=== PATIENT | female | born 1955 | race Caucasian/White ===

== ENCOUNTER 2018-11-19 21:43 | Emergency (ER) | payer SELFPAY ==
[~2018-11-19] VITALS: Ht 162.6 cm; Wt 57.2 kg
[2018-11-19] MEDS ORDERED: diphenhydrAMINE 50 MG/ML INJ (BENADRYL) IVP ONE (22:15)
[2018-11-19] MEDS ORDERED: methylPREDNISolone 125 MG (Solu-MEDROL) VIAL IVP ONE (22:15)
--- NOTE | 2018-11-19 22:51 | ED Integumentary General ---
General Chief Complaint: Allergic Reaction Stated Complaint: ALLERGIC REACTION Source: patient, spouse History of Present Illness Date Seen by Provider: Nov 19, 2018 Time Seen by Provider: 21:50 Initial Comments 63-year-old female presenting with complaints of generalized itching and hives. She was concerned that she may have eaten something that was connected drinking well earlier this evening. Around 8 PM she started having some itching and hives that have worsened. She had no wheezing or shortness of breath. She does not have any difficulty swallowing. She was becoming anxious that her symptoms may worsen so she came to the emergency department. She has had similar symptoms with peanuts and other allergy reactions. Allergies and Home Medications Allergies Coded Allergies: peanut (Verified Allergy, Unknown, 11/19/18) Home Medications Prednisone 20 Mg Tab, 40 MG PO DAILY Prescribed by: LASHELL LEWIS on 11/19/18 3689 Patient Home Medication List Home Medication List Reviewed: Yes Review of Systems Review of Systems Constitutional: No chills, No fever EENTM: No throat pain, No throat swelling Respiratory: No cough, No dyspnea on exertion, No short of breath Cardiovascular: No chest pain Gastrointestinal: abdominal pain (diffuse cramping) Genitourinary: no symptoms reported Musculoskeletal: no symptoms reported Skin: no symptoms reported Psychiatric/Neurological: No Symptoms Reported Past Zbivksa-Aoennj-Gtqczc Hx Past Med/Social Hx: Reviewed Nursing Past Med/Soc Hx Patient Social History Alcohol Use: Denies Use Recreational Drug Use: No 2nd Hand Smoke Exposure: No Recent Foreign Travel: No Contact w/Someone Who Travel: No Recent Hopitalizations: No Seasonal Allergies Seasonal Allergies: Yes Past Medical History Surgeries: Yes Thyroidectomy Respiratory: Yes Asthma Cardiac: No Neurological: No Genitourinary: No Gastrointestinal: No Musculoskeletal: No Endocrine: No HEENT: No Cancer: No Psychosocial: No Integumentary: No Blood Disorders: No Physical Exam Vital Signs Vital Signs - First Documented 11/19/18 21:55 Temp 97.9 Pulse 68 Resp 18 B/P (MAP) 155/68 (97) Pulse Ox 98 Capillary Refill : General Appearance: WD/WN, no apparent distress HEENT: normal ENT inspection, pharynx normal Neck: non-tender, full range of motion, supple, normal inspection Cardiovascular: normal peripheral pulses, regular rate, rhythm Respiratory: chest non-tender, lungs clear, normal breath sounds, no respiratory distress, no accessory muscle use; No rhonchi, No stridor, No wheezing Gastrointestinal: normal bowel sounds, soft, no pulsatile mass Extremities: normal range of motion, non-tender Neurologic/Psychiatric: alert, normal mood/affect, oriented x 3 Skin: warm/dry, rash (urticarial rash on her trunk and extremities) Progress/Results/Core Measures Results/Orders My Orders Orders - LASHELL LEWIS MD Iv/Invasive Line Insertion .IV start (11/19/18 22:03) Diphenhydramine Injection (Benadryl Inje (11/19/18 22:15) Methylprednisolone Sod Succ (Solu-Medrol (11/19/18 22:15) Medications Given in ED Current Medications Medications Dose Ordered Sig/Jessica Route Start Time Stop Time Status Last Admin Dose Admin Diphenhydramine HCl 50 mg ONCE ONCE IVP 11/19/18 22:15 11/19/18 22:16 DC 11/19/18 22:08 50 MG Methylprednisolone Sodium Succinate 125 mg ONCE ONCE IVP 11/19/18 22:15 11/19/18 22:16 DC 11/19/18 22:08 125 MG Vital Signs/I&O 11/19/18 11/19/18 21:55 23:22 Temp 97.9 Pulse 68 72 Resp 18 16 B/P (MAP) 155/68 (97) 129/60 (83) Pulse Ox 98 96 Progress Progress Note #1: Progress Note We will give Solu-Medrol and Benadryl IV for her symptoms. Provided she is improving we'll plan on discharge with continued oral treatment Progress Note #2: Progress Note On recheck approximately 30-40 minutes after medication she was improved and will discharge to home with prescription for 3 more days of prednisone. We will have her continue [id number] antihistamines. Departure Impression Primary Impression: Allergic reaction Qualified Codes: T78.40XA - Allergy, unspecified, initial encounter Additional Impression: H/O peanut allergy Disposition: HOME, SELF-CARE Condition: Improved Departure-Patient Inst. Decision time for Depature: 23:07 Patient Instructions: Allergy to Peanuts , Hives (DC) Add. Discharge Instructions: Check back with your regular provider for continued concerns. use Benadryl (Diphenhydramine) 25-50 mg every 6 hours as needed for rash/itching. If you want something less sedating you could try Zyrtec (Cetirizine), Urmila (Fexofenadine) or Claritin (Loratidine). Continue the Steroids by mouth with Prednisone daily for 3 more days. All discharge instructions reviewed with patient and/or family. Voiced underst anding. Scripts Prednisone (Prednisone) 20 Mg Tab 40 MG PO DAILY for 3 Days, #6 TAB 0 Refills Prov: LASHELL LEWIS MD 11/19/18 LASHELL LEWIS MD Nov 19, 2018 22:51
[2018-11-19] MEDS ORDERED: PRD20T PO (23:11)
[2018-11-19 23:22] VITALS: BP 129/60
== END 2018-11-19 23:25 | disposition home or self-care (01) ==
LOC: ER FS 21:46
DX: T78.40XA Allergy, unspecified, initial encounter (principal); J45.909 Unspecified asthma, uncomplicated; Z79.52 Long term (current) use of systemic steroids; Z90.89 Acquired absence of other organs; Z91.010 Allergy to peanuts
CPT/HCPCS: 96374; 96375

== ENCOUNTER 2019-05-13 12:38 | Emergency (ER) | payer MEDICARE ==
[~2019-05-13] VITALS: Ht 162.5 cm; Wt 55.4 kg
[~2019-05-13 12:38] MED LIST: PRD20T PO
--- NOTE | 2019-05-13 14:03 | ED General ---
General Chief Complaint: Abdominal/GI Problems Stated Complaint: PAIN - HERNIA SURG EARLIER THIS W[facility] Nursing Triage Note: Patient presents to the ED with c/o rectal and lower abdominal pain. States she had a hemorrohidectomy on Wednesday and hasn't been able to have a good bowel movement since. She does report that she has had a small bowel movement today but doesn't feel like it is enough. She states that she was instructed to come to the ED if her pain became unbearable; she feels like she is going to "pass out" when trying to have a bowel movement due to the severity of the pain. Nursing Sepsis Screen: No Definite Risk History of Present Illness Date Seen by Provider: May 13, 2019 Time Seen by Provider: 14:03 Initial Comments 64-year-old female presenting with complaints of urinary pain and rectal pain. She had a hemorrhoidectomy on Wednesday with Dr. Barreto out of [facility]. She states that she is taking a stool softener since then but has not had a bowel movement. She has severe pain when she tries to pass any stool and has a very small amount of stool come out but almost passed out due to the pain. She also is having urine just spray when she tries to urinate. She has dizziness and lightheadedness when she tries to stand. She feels nauseated and has not been eating or drinking much today. Due to the pain and running out of her hydrocodone she feels pain is out of control and not being controlled with just taking acetaminophen and ibuprofen. She had called the on-call doctor for Dr. Barreto and was told to come to the emergency department if she continued to have problems. Allergies and Home Medications Allergies Coded Allergies: peanut (Verified Allergy, Unknown, 11/19/18) Home Medications Ondansetron 4 Mg Tab.rapdis, 4 MG PO Q6H PRN for NAUSEA/VOMITING Prescribed by: LASHELL ALEXANDRERT on 05/13/19 1724 Oxycodone HCl/Acetaminophen 1 Each Tablet, 1 TAB PO Q4H PRN for PAIN-SEVERE (8- 10) Prescribed by: LASHELL ALEXANDRERT on 05/13/19 1724 Prednisone 20 Mg Tab, 40 MG PO DAILY Prescribed by: LASHELL ALEXANDRERT on 11/19/18 2311 Patient Home Medication List Home Medication List Reviewed: Yes Review of Systems Review of Systems Constitutional: No chills; dizziness (with standing); No fever; malaise, weakness (generalized) EENTM: no symptoms reported Respiratory: no symptoms reported Cardiovascular: no symptoms reported Gastrointestinal: abdominal pain (suprapubic), constipation, nausea; No vomitin g; other (rectal pain especially when she tries to have a bowel movement or with any bearing down) Genitourinary: dysuria Musculoskeletal: no symptoms reported Skin: no symptoms reported Psychiatric/Neurological: Anxiety Past Lqllawt-Bedfja-Chdovx Hx Past Med/Social Hx: Reviewed Nursing Past Med/Soc Hx Patient Social History Alcohol Use: Denies Use Recreational Drug Use: No Smoking Status: Never a Smoker 2nd Hand Smoke Exposure: No Recent Foreign Travel: No Contact w/Someone Who Travel: No Recent Infectious Disease Expo: No Recent Hopitalizations: No Physical Abuse: No Sexual Abuse: No Mistreated: No Fear: No Immunizations Up To Date Tetanus Booster (TDap): Unknown Date of Pneumonia Vaccine: Mar 21, 2019 Date of Influenza Vaccine: Mar 21, 2019 Seasonal Allergies Seasonal Allergies: Yes Past Medical History Surgeries: Yes Bowel Surgery, Breast, Cystectomy, Orthopedic, Thyroidectomy, Tonsillectomy Respiratory: Yes Asthma Cardiac: No Neurological: No Genitourinary: No Gastrointestinal: Yes (Hemorrhoidectomy) Hemorrhoids Musculoskeletal: Yes Arthritis Endocrine: Yes Hypothyroidsim HEENT: No Cancer: No Psychosocial: No Integumentary: No Blood Disorders: No Physical Exam Vital Signs Vital Signs - First Documented 05/13/19 12:45 Temp 36.0 Pulse 83 Resp 24 B/P (MAP) 131/75 (93) Pulse Ox 96 O2 Delivery Room Air Capillary Refill : Less Than 3 Seconds Height, Weight, BMI Height: 5'4.00" Weight: 126lbs. oz. 57.447416hg; 20.00 BMI Method:Stated General Appearance: Anxious, Mild Distress HEENT: PERRL/EOMI; No Moist Mucous Membranes (slightly dry mucous membranes) Neck: Full Range of Motion, Supple Respiratory: Chest Non Tender, Lungs Clear, Normal Breath Sounds Cardiovascular: Regular Rate, Rhythm, Normal Peripheral Pulses Gastrointestinal: Normal Bowel Sounds, No Pulsatile Mass, Soft; No Guarding; Tenderness (mild tenderness over the suprapubic area) Rectal: Tenderness (redness and irritation to the rectal area. There's swelling and a small amount of blood noted. On digital rectal exam a large amount of firm stool is felt within the rectal vault.) Extremity: Normal Capillary Refill, No Pedal Edema Neurologic/Psychiatric: Alert, Oriented x3 Skin: Normal Color, Warm/Dry Progress/Results/Core Measures Suspected Sepsis Recent Fever Within 48 Hours: No Infection Criteria Present: None New/Unexplained Altered Menta: No Sepsis Screen: No Definite Risk SIRS Temperature: Pulse: 83 Respiratory Rate: 24 Laboratory Tests 05/13/19 14:20: White Blood Count 12.4H Blood Pressure 131 /75 Mean: 93 Laboratory Tests 05/13/19 14:20: Creatinine 0.81, Platelet Count 275, Total Bilirubin 0.2 Results/Orders Lab Results Laboratory Tests Test 05/13/19 14:20 05/13/19 15:25 Range/Units White Blood Count 12.4 H 4.3-11.0 10^3/uL Red Blood Count 4.79 4.35-5.85 10^6/uL Hemoglobin 14.4 11.5-16.0 G/DL Hematocrit 42 35-52 % Mean Corpuscular Volume 88 80-99 FL Mean Corpuscular Hemoglobin 30 25-34 PG Mean Corpuscular Hemoglobin Concent 34 32-36 G/DL Red Cell Distribution Width 12.5 10.0-14.5 % Platelet Count 275 130-400 10^3/uL Mean Platelet Volume 9.9 7.4-10.4 FL Neutrophils (%) (Auto) 79 H 42-75 % Lymphocytes (%) (Auto) 13 12-44 % Monocytes (%) (Auto) 7 0-12 % Eosinophils (%) (Auto) 1 0-10 % Basophils (%) (Auto) 0 0-10 % Neutrophils # (Auto) 9.8 H 1.8-7.8 X 10^3 Lymphocytes # (Auto) 1.6 1.0-4.0 X 10^3 Monocytes # (Auto) 0.8 0.0-1.0 X 10^3 Eosinophils # (Auto) 0.1 0.0-0.3 10^3/uL Basophils # (Auto) 0.0 0.0-0.1 10^3/uL Sodium Level 141 135-145 MMOL/L Potassium Level 4.2 3.6-5.0 MMOL/L Chloride Level 102 98-107 MMOL/L Carbon Dioxide Level 25 21-32 MMOL/L Anion Gap 14 5-14 MMOL/L Blood Urea Nitrogen 13 7-18 MG/DL Creatinine 0.81 0.60-1.30 MG/DL Estimat Glomerular Filtration Rate > 60 BUN/Creatinine Ratio 16 Glucose Level 123 H 70-105 MG/DL Calcium Level 9.7 8.5-10.1 MG/DL Corrected Calcium 9.6 8.5-10.1 MG/DL Total Bilirubin 0.2 0.1-1.0 MG/DL Aspartate Amino Transf (AST/SGOT) 34 5-34 U/L Alanine Aminotransferase (ALT/SGPT) 33 0-55 U/L Alkaline Phosphatase 69 40-136 U/L Total Protein 6.9 6.4-8.2 GM/DL Albumin 4.1 3.2-4.5 GM/DL Lipase 23 8-78 U/L Urine Color YELLOW Urine Clarity CLEAR Urine pH 7.5 5-9 Urine Specific [place] 1.010 L 1.016-1.022 Urine Protein NEGATIVE NEGATIVE Urine Glucose (UA) NEGATIVE NEGATIVE Urine Ketones NEGATIVE NEGATIVE Urine Nitrite NEGATIVE NEGATIVE Urine Bilirubin NEGATIVE NEGATIVE Urine Urobilinogen 0.2 < = 1.0 MG/DL Urine Leukocyte Esterase NEGATIVE NEGATIVE Urine RBC (Auto) NEGATIVE NEGATIVE Urine RBC NONE /HPF Urine WBC NONE /HPF Urine Squamous Epithelial Cells NONE /HPF Urine Crystals PRESENT H /LPF Urine Amorphous Sediment FEW MARY PHOSPHATE H /LPF Urine Bacteria NEGATIVE /HPF Urine Casts NONE /LPF Urine Mucus NONE /LPF Urine Culture Indicated NO My Orders Orders - LASHELL LEWIS MD Comprehensive Metabolic Panel (05/13/19 14:17) Lipase (05/13/19 14:17) Ua Culture If Indicated (05/13/19 14:17) Ed Iv/Invasive Line Start (05/13/19 14:17) Cbc With Automated Diff (05/13/19 14:17) Ct Abdomen/Pelvis W (05/13/19 14:17) Ns Iv 1000 Ml (Sodium Chloride 0.9%) (05/13/19 14:30) Ondansetron Injection (Zofran Injectio (05/13/19 14:17) Fentanyl Injection (Sublimaze Injection (05/13/19 14:17) Iohexol Injection (Omnipaque 350 Mg/Ml 1 (05/13/19 14:30) Received Contrast (Hold Metformin- Contr (05/13/19 14:30) Sodium Chloride Flush (Catheter Flush Sy (05/13/19 14:30) Ns (Ivpb) (Sodium Chloride 0.9% Ivpb Bag (05/13/19 14:30) Fentanyl Injection (Sublimaze Injection (05/13/19 16:14) Oxycodone/Apap 5/325mg Tablet (Percocet (05/13/19 16:14) Lidocaine 2% Jelly 5 Ml (Xylocaine Jelly (05/13/19 16:14) Medications Given in ED Vital Signs/I&O 05/14/19 00:00 Intake Total 1000 ml Balance 1000 ml Capillary Refill : Less Than 3 Seconds Blood Pressure Mean: 93 POS Progress Note #1: Progress Note Obtain labs and perform a CT scan of the abdomen and pelvis to evaluate the extent of stool present and look for any fluid collections since the patient was complaining of such severe pain around her rectum. This is still likely secondary to her fecal impaction from patient not adequately keeping her stools soft and passing any stool through her rectum since it's tender and painful from the recent hemorrhoidectomy. Progress Note #2: Progress Note Patient was feeling a little bit better after treatment in the ED. Her labs appear stable with a mild elevation of her white blood cell count likely secondary to stress and recent surgery. There is no sign of infection on her urinalysis. Her CT scan showed a significant amount of stool present as well as a possible stool down in her rectum. There was no sign of an abscess or fluid collection. Discussed with Dr. Barreto the surgeon that performed her hemorrhoidectomy from [facility]. He advised refilling a prescription for some pain medicine to help get her through the constipation stressing the importance of drinking fluids and continue laxative in addition to the Colace. He advised using some topical lidocaine jelly to help with pain in her hemorrhoidectomy area as well as taking milk of magnesia 20 MLS every 2 hours until results. Make sure to follow a liquid diet until she is passing stools. Will give an additional dose of fentanyl here for pain and start her on the Percocet. Prescribe some Percocet and Zofran for home to help with nausea and pain until she can be passing stools. Counseled on sitz baths and that she may even need to soak in a warm tub and try to pass stool while in the tub to help the rectum relax. Diagnostic Imaging Diagonstic Imaging: CT Plain Films/CT/US/NM/MRI: abdomen, pelvis Comments NAME: DORA GARCIA REC#: [id number] PT STATUS: REG ER : 1955 PHYSICIAN: LASHELL LEWIS MD ADMIT DATE: 05/13/19/ER FS Draft POSDate of Exam:05/13/19 CT ABDOMEN/PELVIS W PROCEDURE: CT abdomen and pelvis with contrast. TECHNIQUE: Multiple contiguous axial images were obtained through the abdomen and pelvis after administration of intravenous contrast. Auto Exposure Controls were utilized during the CT exam to meet ALARA standards for radiation dose reduction. INDICATION: Lower abdominal pain, hemorrhoidectomy 4 days ago. COMPARISON: None. DISCUSSION: The lung bases are well-aerated. Normal heart size. No pleural or pericardial fluid. Fatty infiltration of the liver is noted. Probable cyst within the right hepatic dome measuring 8 mm. The gallbladder, pancreas, stomach, spleen, and adrenal glands are unremarkable. No renal stone on the right. There is a 5 mm stone on the left with no hydronephrosis. There is moderate constipation noted diffusely. Significant stool is present within the rectum. The uterus appears to be surgically absent. Urinary bladder is unremarkable. The appendix is surgically absent. No obstruction, pneumatosis, pneumoperitoneum. No ascites or pathologically enlarged lymph nodes are identified. No acute osseous abnormality. Chronic appearing T11 compression fracture. IMPRESSION: 1. Significant constipation with markedly increased stool within the rectum. Dictated on workstation # [id number] Dict: 05/13/19 1526 Trans: 05/13/19 1530 [facility] [id number] Interpreted by: GLORIA ESTRADA MD Electronically signed by: Departure Impression Primary Impression: Rectal pain Additional Impressions: Constipation Qualified Codes: K59.00 - Constipation, unspecified S/P hemorrhoidectomy Disposition: 01 HOME, SELF-CARE Condition: Stable Departure-Patient Inst. Decision time for Depature: 17:17 Referrals: XOCHILT PLASCENCIA MD (PCP/Family) Primary Care Physician Patient Instructions: Constipation, Adult (DC), Hemorrhoidectomy (DC) Add. Discharge Instructions: Use the topical lidocaine jelly to help numb your rectum and you may apply this every 1-2 hours as needed to help with the pain. Use milk of magnesia 20 mL or 4 teaspoons every 2 hours until you are getting results of moving your bowels. This will cause cramping and some abdominal bloating but it will help make your bowels move and help get the constipation to resolve. Make sure that you're following a liquid diet. Follow-up with Dr. Barreto for f urther concerns. You may always call him through the answering service if you have further questions. All discharge instructions reviewed with patient and/or family. Voiced understanding. Scripts Ondansetron (Ondansetron Odt) 4 Mg Tab.rapdis 4 MG PO Q6H PRN for NAUSEA/VOMITING for 5 Days, #20 TAB 0 Refills Prov: LASHELL LEWIS MD 05/13/19 Oxycodone HCl/Acetaminophen (Percocet 5-325 mg Tablet) 1 Each Tablet 1 TAB PO Q4H PRN for PAIN-SEVERE (8-10) MDD 6 TABS for 5 Days, #30 TAB 0 Refills Prov: LASHELL LEWIS MD 05/13/19 LASHELL LEWIS MD May 13, 2019 14:03 POS
[2019-05-13] MEDS ORDERED: fentaNYL INJECTION 100 MCG/2 ML AMP IVP STA ×2 (14:17→16:14)
[2019-05-13] MEDS ORDERED: ONDANSETRON 4 MG/2 ML (SDV) Z0FRAN IVP STA (14:17)
[2019-05-13] MEDS ORDERED: CATHETER FLUSH 10 ML SYR IV PRN (14:30)
[2019-05-13] MEDS ORDERED: IOHEXOL 350 MG/ML 100 ML (OMNIPAQUE 350) VIAL IV ONE (14:30)
[2019-05-13] MEDS ORDERED: NS IV 1000 ML 1,000 ML IV SCH (14:30)
[2019-05-13] MEDS ORDERED: HOLD METFORMIN - RECEIVED CONTRAST 20 ML VIAL IV SCH (14:30)
[2019-05-13] MEDS ORDERED: NS 100 ML (IVPB) BAG IV ONE (14:30)
[2019-05-13 14:32] LABS: BASOPHILS % (AUTO) 0 % (0-10); EOSINOPHILS % (AUTO) 1 % (0-10); HEMATOCRIT 42 % (35-52); HEMOGLOBIN 14.4 G/DL (11.5-16.0); LYMPHOCYTES % (AUTO) 13 % (12-44); MEAN CORPUSCULAR HEMOGLOBIN 30 PG (25-34); MEAN CORPUSCULAR HGB CONC 34 G/DL (32-36); MEAN CORPUSCULAR VOLUME 88 FL (80-99); MEAN PLATELET VOLUME 9.9 FL (7.4-10.4); MONOCYTES % (AUTO) 7 % (0-12); NEUTROPHILS # (AUTO) 9.8 X 10^3 (1.8-7.8); NEUTROPHILS % (AUTO) 79 % (42-75); PLATELET COUNT 275 10^3/uL (130-400); RED CELL DISTRIBUTION WIDTH 12.5 % (10.0-14.5); WHITE BLOOD COUNT 12.4 10^3/uL (4.3-11.0)
[2019-05-13 14:33] LABS: EOSINOPHILS # (AUTO) 0.1 10^3/uL (0.0-0.3); LYMPHOCYTES # (AUTO) 1.6 X 10^3 (1.0-4.0); MONOCYTES # (AUTO) 0.8 X 10^3 (0.0-1.0)
[2019-05-13 14:53] LABS: ALANINE AMINOTRANSFERASE 33 U/L (0-55); ALBUMIN 4.1 GM/DL (3.2-4.5); ALKALINE PHOSPHATASE 69 U/L (40-136); BILIRUBIN,TOTAL 0.2 MG/DL (0.1-1.0); BUN/CREATININE RATIO 16; CALCIUM 9.7 MG/DL (8.5-10.1); CARBON DIOXIDE 25 MMOL/L (21-32); CHLORIDE 102 MMOL/L (98-107); CREATININE SERUM 0.81 MG/DL (0.60-1.30); GFR ESTIMATED > 60; GLUCOSE 123 MG/DL (70-105); LIPASE 23 U/L (8-78); POTASSIUM 4.2 MMOL/L (3.6-5.0); SODIUM 141 MMOL/L (135-145); TOTAL PROTEIN 6.9 GM/DL (6.4-8.2)
--- NOTE | 2019-05-13 15:30 | Diagnostic Imaging Report ---
PROCEDURE: CT abdomen and pelvis with contrast. TECHNIQUE: Multiple contiguous axial images were obtained through the abdomen and pelvis after administration of intravenous contrast. Auto Exposure Controls were utilized during the CT exam to meet ALARA standards for radiation dose reduction. INDICATION: Lower abdominal pain, hemorrhoidectomy 4 days ago. COMPARISON: None. DISCUSSION: The lung bases are well-aerated. Normal heart size. No pleural or pericardial fluid. Fatty infiltration of the liver is noted. Probable cyst within the right hepatic dome measuring 8 mm. The gallbladder, pancreas, stomach, spleen, and adrenal glands are unremarkable. No renal stone on the right. There is a 5 mm stone on the left with no hydronephrosis. There is moderate constipation noted diffusely. Significant stool is present within the rectum. The uterus appears to be surgically absent. Urinary bladder is unremarkable. The appendix is surgically absent. No obstruction, pneumatosis, pneumoperitoneum. No ascites or pathologically enlarged lymph nodes are identified. No acute osseous abnormality. Chronic appearing T11 compression fracture. IMPRESSION: 1. Significant constipation with markedly increased stool within the rectum. Dictated by: Dictated on workstation # [id number]
[2019-05-13 15:47] LABS: BACTERIA,URINE NEGATIVE /HPF; BILIRUBIN,URINE NEGATIVE (NEGATIVE); CLARITY,URINE CLEAR; COLOR,URINE YELLOW; GLUCOSE, URINE (UA) NEGATIVE (NEGATIVE); KETONES,URINE NEGATIVE (NEGATIVE); LEUKOCYTE ESTERASE ,URINE NEGATIVE (NEGATIVE); NITRITE,URINE NEGATIVE (NEGATIVE); PH,URINE 7.5 (5-9); PROTEIN,URINE NEGATIVE (NEGATIVE)
[2019-05-13 15:48] LABS: AMORPHOUS SEDIMENT,UR FEW AMOR PHOSPHATE /LPF
[2019-05-13] MEDS ORDERED: oxyCODONE/APAP 5/325MG (PERCOCET 5) TABLET PO STA (16:14)
[2019-05-13] MEDS ORDERED: LIDOCAINE JELLY 2% (XYLOCAINE) 5 ML TUBE TOP STA (16:14)
[2019-05-13] MEDS ORDERED: ONDA4TAB11 PO (17:24)
[2019-05-13] MEDS ORDERED: OXYC1TAB87 PO (17:24)
[2019-05-13 17:33] VITALS: BP 131/75
== END 2019-05-13 17:33 | disposition home or self-care (01) ==
LOC: EDUNIT# 12:38 → ER FS 12:40
DX: K59.00 Constipation, unspecified (principal); J45.909 Unspecified asthma, uncomplicated; E03.9 Hypothyroidism, unspecified; Z98.890 Other specified postprocedural states; Z79.52 Long term (current) use of systemic steroids; Z90.89 Acquired absence of other organs
CPT/HCPCS: 36415; 74177; 80053; 81000; 83690; 85025

== ENCOUNTER 2020-01-22 04:00 | Emergency (ER) | payer MEDICARE ==
[~2020-01-22 04:00] MED LIST changes: +ONDA4TAB11 PO; +OXYC1TAB87 PO
--- OUTSIDE RECORDS SUMMARY | 2020-01-22 04:06 | XMS REPORT | Continuity of Care Document ---
Author Organization Unknown Address Unknown Phone Unavailable Allergies Active Description Code Type Severity Reaction Onset Reported/Identified Relationship to Patient Clinical Status Yes peanut [id number] Drug Allergy Unknown N/A 11/19/2018 Medications There is no data. 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 11/19/2018 LASHELL LEWIS MD Ot Z90.8 9 ACQUIRED ABSENCE OF OTHER ORGANS 11/19/2018 LASHELL LEWIS MD Ot Z91.0 10 ALLERGY TO PEANUTS 05/13/2019 LASHELL LEWIS MD, Ot E03.9 HYPOTHYROIDISM, UNSPECIFIED 05/13/2019 LASHELL LEWIS MD, Ot J45.9 09 UNSPECIFIED ASTHMA, UNCOMPLICATED 05/13/2019 LASHELL LEWIS MD Ot K59.0 0 CONSTIPATION, UNSPECIFIED 05/13/2019 LASHELL LEWIS MD Ot K62.8 9 OTHER SPECIFIED DISEASES OF ANUS AND REC 05/13/2019 LASHELL LEWIS MD, Ot Z79.5 2 PRISON (CURRENT) USE OF SYSTEMIC STER 05/13/2019 LASHELL LEWIS MD Ot Z90.8 9 ACQUIRED ABSENCE OF OTHER ORGANS 05/13/2019 LASHELL LEWIS MD Ot Z98.8 90 OTHER SPECIFIED POSTPROCEDURAL STATES 05/16/2019 LASHELL LEWIS MD Ot E03.9 HYPOTHYROIDISM, UNSPECIFIED 05/16/2019 LASHELL LEWIS MD Ot J45.9 09 UNSPECIFIED ASTHMA, UNCOMPLICATED 05/16/2019 LASHELL LEWIS MD Ot K59.0 0 CONSTIPATION, UNSPECIFIED 05/16/2019 LASHELL LEWIS MD Ot K62.8 9 OTHER SPECIFIED DISEASES OF ANUS AND REC 05/16/2019 LASHELL LEWIS MD Ot 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 05/16/2019 LASHELL LEWIS MD Ot Z90.8 9 ACQUIRED ABSENCE OF OTHER ORGANS 05/16/2019 LASHELL LEWIS MD Ot Z98.8 90 OTHER SPECIFIED POSTPROCEDURAL STATES 05/22/2019 LASHELL LEWIS MD Ot E03.9 HYPOTHYROIDISM, UNSPECIFIED 05/22/2019 LASHELL LEWIS MD Ot J45.9 09 UNSPECIFIED ASTHMA, UNCOMPLICATED 05/22/2019 LASHELL LEWIS MD, Ot K59.0 0 CONSTIPATION, UNSPECIFIED 05/22/2019 LASHELL LEWIS MD Ot K62.8 9 OTHER SPECIFIED DISEASES OF ANUS AND REC 05/22/2019 LASHELL LEWIS MD Ot Z79.5 2 PRISON (CURRENT) USE OF SYSTEMIC STER 05/22/2019 LASHELL LEWIS MD Ot Z90.8 9 ACQUIRED ABSENCE OF OTHER ORGANS 05/22/2019 LASHELL LEWIS MD Ot Z98.8 90 OTHER SPECIFIED POSTPROCEDURAL STATES Procedures There is no data. Results Test Result Range TSH w/ FREE T4 - 02/06/19 08:23 TSH 2.07 mIU/L 0.40-4.50 T4, FREE 1.1 ng/dL 0.8-1.8 LIPID PANEL - 02/06/19 08:23 CHOLESTEROL, TOTAL 255 mg/dL <200 HDL CHOLESTEROL 52 mg/dL >50 TRIGLYCERIDES 287 mg/dL <150 LDL-CHOLESTEROL 156 mg/dL (calc) NRG CHOL/HDLC RATIO 4.9 (calc) <5.0 NON HDL CHOLESTEROL 203 mg/dL (calc) <13 0 CMP - 02/06/19 08:23 GLUCOSE 94 mg/dL 65-99 UREA NITROGEN (BUN) 23 mg/dL 7-25 CREATININE 1.03 mg/dL 0.50-0.99 eGFR NON-AFR. BELIZEAN 57 mL/min/1.73m2 > OR = 60 eGFR 66 mL/min/1.73m2 > OR = 60 BUN/CREATININE RATIO 22 (calc) 6-22 SODIUM 141 mmol/L 135-146 POTASSIUM 4.6 mmol/L 3.5-5.3 CHLORIDE 105 mmol/L 98-110 CARBON DIOXIDE 29 mmol/L 20-32 CALCIUM 9.9 mg/dL 8.6-10.4 PROTEIN, TOTAL 6.3 g/dL 6.1-8.1 ALBUMIN 4.2 g/dL 3.6-5.1 GLOBULIN 2.1 g/dL (calc) 1.9-3.7 ALBUMIN/GLOBULIN RATIO 2.0 (calc) 1.0-2. 5 BILIRUBIN, TOTAL 0.5 mg/dL 0.2-1.2 ALKALINE PHOSPHATASE 55 U/L 33-130 AST 20 U/L 10-35 ALT 19 U/L 6-29 Complete blood count (CBC) with automate d white blood cell (WBC) differential - 05/13/19 14:20 Blood leukocytes automated count (number/volume) 12.4 10*3/uL 4.3-11.0 Blood erythrocytes automated count (number/volume) 4.79 10*6/uL 4.35-5.85 Venous blood hemoglobin measurement (mass/volume) 14.4 g/dL 11.5-16.0 Blood hematocrit (volume fraction) 42 % 35-52 Automated erythrocyte mean corpuscular volume 88 [ foz_us] 80-99 Automated erythrocyte mean corpuscular h emoglobin (mass per erythrocyte) 30 pg 25-34 Automated erythrocyte mean corpuscular h emoglobin concentration measurement (mass/volume) 34 g/dL 32-36 Automated erythrocyte distribution width ratio 12. 5 % 10.0- 14.5 Automated blood platelet count (count/volume) 275 10*3/uL 130-400 Automated blood platelet mean volume measurement 9.9 [foz_us] 7.4-10.4 Automated blood neutrophils/100 leukocytes 79 % 42-75 Automated blood lymphocytes/100 leukocytes 13 % 12-44 Blood monocytes/100 leukocytes 7 % 0-12 Automated blood eosinophils/100 leukocytes 1 % 0-10 Automated blood basophils/100 leukocytes 0 % 0-10 Blood neutrophils automated count (number/volume) 9.8 10*3 1.8-7.8 Blood lymphocytes automated count (number/volume) 1.6 10*3 1.0-4.0 Blood monocytes automated count (number/volume) 0. 8 10*3 0.0-1.0 Automated eosinophil count 0.1 10*3/uL 0 .0-0.3 Automated blood basophil count (count/volume) 0.0 10*3/uL 0.0-0.1 Comprehensive metabolic panel - 05/13/19 14:20 Serum or plasma sodium measurement (moles/volume) 141 mmol/L 135-145 Serum or plasma potassium measurement (moles/volume) 4.2 mmol/L 3.6-5.0 Serum or plasma chloride measurement (moles/volume) 102 mmol/L 98-107 Carbon dioxide 25 mmol/L 21-32 Serum or plasma anion gap determination (moles/volume) 14 mmol/L 5-14 Serum or plasma urea nitrogen measurement (mass/volume ) 13 mg/dL 7-18 Serum or plasma creatinine measurement (mass/volume) 0.81 mg/dL 0.60-1.30 Serum or plasma urea nitrogen/creatinine mass ratio 16 NRG Serum or plasma creatinine measurement w ith calculation of estimated glomerular filtration rate > NRG Serum or plasma glucose measurement (mass/volume) 123 mg/dL 70-105 Serum or plasma calcium measurement (mass/volume) 9.7 mg/dL 8.5-10.1 Serum or plasma total bilirubin measurement (mass/volu me) 0.2 mg/dL 0.1-1.0 Serum or plasma alkaline phosphatase robles surement (enzymatic activity/volume) 69 U/L 40-136 Serum or plasma aspartate aminotransfera se measurement (enzymatic activity/volume) 34 U/L 5-34 Serum or plasma alanine aminotransferase measurement (enzymatic activity/volume) 33 U/L 0-55 Serum or plasma protein measurement (mass/volume) 6.9 g/dL 6.4-8.2 Serum or plasma albumin measurement (mass/volume) 4.1 g/dL 3.2-4.5 CALCIUM CORRECTED 9.6 mg/dL 8.5-10.1 Lipase - 05/13/19 14:20 Lipase 23 U/L 8-78 Complete urinalysis with reflex to cultu re - 05/13/19 15:25 Urine color determination YELLOW NRG Urine clarity determination CLEAR NR G Urine pH measurement by test strip 7.5 5-9 Specific gravity of urine by test strip 1.010 1.016-1.022 Urine protein assay by test strip, semi-quantitative NEGATIVE NEGATIVE Urine glucose detection by automated test strip NE GATIVE NEGATIVE Erythrocytes detection in urine sediment by light micr oscopy NEGATIVE NEGATIVE Urine ketones detection by automated test strip NE GATIVE NEGATIVE Urine nitrite detection by test strip NEGATIVE NEGATIVE Urine total bilirubin detection by test strip NEGA TIVE NEGATIVE Urine urobilinogen measurement by automated test strip (mass/volume) 0.2 mg/dL < = 1.0 Urine leukocyte esterase detection by dipstick NEG ATIVE NEGATIVE Automated urine sediment erythrocyte cou nt by microscopy (number/high power field) NONE NRG Automated urine sediment leukocyte count by microscopy (number/high power field) NONE NRG Bacteria detection in urine sediment by light microsco py NEGATIVE NRG Squamous epithelial cells detection in u rine sediment by light microscopy NONE NRG Crystals detection in urine sediment by light microsco py PRESENT NRG Casts detection in urine sediment by light microscopy NONE NRG Mucus detection in urine sediment by light microscopy NONE NRG Complete urinalysis with reflex to culture NO NRG Amorphous sediment detection in urine sediment by ligh t microscopy FEW MARY PHOSPHATE NRG Encounters ACCT No. Visit Date/Time Discharge Status Pt. Type Provider Facility Loc./Unit Complaint [id number] 02/07/2019 09:40:00 02/07/2019 23:59: 59 CLS Outpatient [facility] [id number] 02/06/2019 08:15:00 Document Registration [id number] 05/13/2019 12:40:00 17:33:00 DIS Emergency LASHELL LEWIS MD [facility] ER FS PAIN - HERNIA SURG MALIHA IER THIS WK [id number] 11/19/2018 21:46:00 23:25:00 DIS Emergency LASHELL LEWIS MD [facility] ER FS ALLERGIC REACTION
[2020-01-22 04:25] LABS: WHITE BLOOD COUNT 9.4 10^3/uL (4.3-11.0)
[2020-01-22 04:26] LABS: BASOPHILS % (AUTO) 0 % (0-10); EOSINOPHILS # (AUTO) 0.1 10^3/uL (0.0-0.3); EOSINOPHILS % (AUTO) 1 % (0-10); HEMATOCRIT 44 % (35-52); HEMOGLOBIN 14.8 G/DL (11.5-16.0); LYMPHOCYTES # (AUTO) 2.9 X 10^3 (1.0-4.0); LYMPHOCYTES % (AUTO) 30 % (12-44); MEAN CORPUSCULAR HEMOGLOBIN 30 PG (25-34); MEAN CORPUSCULAR HGB CONC 34 G/DL (32-36); MEAN CORPUSCULAR VOLUME 89 FL (80-99); MEAN PLATELET VOLUME 9.5 FL (7.4-10.4); MONOCYTES # (AUTO) 0.8 X 10^3 (0.0-1.0); MONOCYTES % (AUTO) 8 % (0-12); NEUTROPHILS # (AUTO) 5.6 X 10^3 (1.8-7.8); NEUTROPHILS % (AUTO) 59 % (42-75); PLATELET COUNT 233 10^3/uL (130-400); RED CELL DISTRIBUTION WIDTH 12.3 % (10.0-14.5)
[2020-01-22 04:42] LABS: ALANINE AMINOTRANSFERASE 20 U/L (0-55); ALBUMIN 4.1 GM/DL (3.2-4.5); ALKALINE PHOSPHATASE 64 U/L (40-136); BILIRUBIN,TOTAL 0.2 MG/DL (0.1-1.0); BUN/CREATININE RATIO 27; CALCIUM 9.3 MG/DL (8.5-10.1); CARBON DIOXIDE 22 MMOL/L (21-32); CHLORIDE 103 MMOL/L (98-107); CREATININE SERUM 0.83 MG/DL (0.60-1.30); GFR ESTIMATED > 60; GLUCOSE 174 MG/DL (70-105); POTASSIUM 3.7 MMOL/L (3.6-5.0); SODIUM 139 MMOL/L (135-145); TOTAL PROTEIN 6.6 GM/DL (6.4-8.2)
--- NOTE | 2020-01-22 04:44 | ED Respiratory ---
General Chief Complaint: Respiratory Problems Stated Complaint: TROUBLE BREATHING Nursing Triage Note: Pt complaining of shortness of breath. Pt states she hasn't been feeling well for the past 4 days and has had a sore throat and congestion. Pt also states she has asthma and so she has been doing breathing treatments this evening History of Present Illness Date Seen by Provider: Jan 22, 2020 Time Seen by Provider: 04:15 Initial Comments Patient is here with shortness of breath on and off for the last 4 days cupping of minimal sputum some body aches no fever no chills little bit of upset stomach no change in urine or stools concerned about coronavirus. Timing/Duration: week Severity: mild Prior Episodes/Possible Cause: occasional episodes Modifying Factors: Worse With Activity, Worse With Coughing Associated Symptoms: No chest pain/soreness; cough; No dizziness, No fever/ch ills, No headache; muscle aches; No nasal congestion; shortness of breath, sore throat Allergies and Home Medications Allergies Coded Allergies: Sulfa (Sulfonamide Antibiotics) (Verified Allergy, Unknown, 01/22/20) peanut (Verified Allergy, Unknown, 11/19/18) Home Medications Ondansetron 4 Mg Tab.rapdis, 4 MG PO Q6H PRN for NAUSEA/VOMITING Prescribed by: LASHELL ALEXANDRERT on 05/13/19 1724 Oxycodone HCl/Acetaminophen 1 Each Tablet, 1 TAB PO Q4H PRN for PAIN-SEVERE (8- 10) Prescribed by: LASHELL ALEXANDRERT on 05/13/19 1724 Prednisone 20 Mg Tab, 40 MG PO DAILY Prescribed by: LASHELL LEWIS on 11/19/18 2311 Patient Home Medication List Home Medication List Reviewed: Yes Review of Systems Review of Systems Constitutional: No chills, No fever; malaise EENTM: No ear pain, No nose congestion, No throat pain Respiratory: cough, phlegm, short of breath; No wheezing Cardiovascular: No chest pain, No edema Gastrointestinal: No abdominal pain, No diarrhea; nausea; No vomiting Genitourinary: No dysuria, No frequency Musculoskeletal: No joint swelling, No muscle pain Skin: No lesions, No rash Past Vcdegya-Hfuowc-Kwlnhb Hx Past Med/Social Hx: Reviewed Nursing Past Med/Soc Hx Patient Social History Alcohol Use: Denies Use Recreational Drug Use: No Smoking Status: Never a Smoker 2nd Hand Smoke Exposure: No Recent Foreign Travel: No Contact w/Someone Who Travel: No Recent Infectious Disease Expo: No Recent Hopitalizations: No Physical Abuse: No Sexual Abuse: No Immunizations Up To Date Tetanus Booster (TDap): Unknown Date of Pneumonia Vaccine: Mar 21, 2019 Date of Influenza Vaccine: Mar 21, 2019 Seasonal Allergies Seasonal Allergies: Yes Past Medical History Surgeries: Yes Bowel Surgery, Breast, Cystectomy, Orthopedic, Thyroidectomy, Tonsillectomy Respiratory: Yes Asthma Cardiac: No Neurological: No Genitourinary: No Gastrointestinal: Yes (Hemorrhoidectomy) Hemorrhoids Musculoskeletal: Yes Arthritis Endocrine: Yes Hypothyroidsim HEENT: No Cancer: No Psychosocial: No Integumentary: No Blood Disorders: No Physical Exam Vital Signs - First Documented 01/22/20 04:14 Temp 36.8 Pulse 72 Resp 20 B/P (MAP) 103/76 (85) Pulse Ox 98 O2 Delivery Room Air Capillary Refill : Less Than 3 Seconds Height: 5'4.00" Weight: 126lbs. oz. 57.550340wc; 20.00 BMI Method:Stated General Appearance: WD/WN, mild distress Eyes: Bilateral Eye Normal Inspection, Bilateral Eye PERRL, Bilateral Eye EOMI HEENT: normal ENT inspection, TMs normal, pharynx normal Respiratory: lungs clear, normal breath sounds; No no respiratory distress Cardiovascular: regular rate, rhythm, no murmur Gastrointestinal: normal bowel sounds, non tender, soft Extremities: normal inspection, no pedal edema Neurologic/Psychiatric: alert, normal mood/affect, oriented x 3 Skin: normal color, warm/dry Progress/Results/Core Measures Suspected Sepsis Recent Fever Within 48 Hours: No Infection Criteria Present: None New/Unexplained Altered Menta: No Sepsis Screen: No Definite Risk SIRS Temperature: Pulse: 72 Respiratory Rate: 20 Laboratory Tests 01/22/20 04:12: White Blood Count 9.4 Blood Pressure 103 /76 Mean: 85 Laboratory Tests 01/22/20 04:12: Creatinine 0.83, Platelet Count 233, Total Bilirubin 0.2 Results/Orders Lab Results Laboratory Tests Test 01/22/20 04:12 01/22/20 04:25 Range/Units White Blood Count 9.4 4.3-11.0 10^3/uL Red Blood Count 4.94 4.35-5.85 10^6/uL Hemoglobin 14.8 11.5-16.0 G/DL Hematocrit 44 35-52 % Mean Corpuscular Volume 89 80-99 FL Mean Corpuscular Hemoglobin 30 25-34 PG Mean Corpuscular Hemoglobin Concent 34 32-36 G/DL Red Cell Distribution Width 12.3 10.0-14.5 % Platelet Count 233 130-400 10^3/uL Mean Platelet Volume 9.5 7.4-10.4 FL Neutrophils (%) (Auto) 59 42-75 % Lymphocytes (%) (Auto) 30 12-44 % Monocytes (%) (Auto) 8 0-12 % Eosinophils (%) (Auto) 1 0-10 % Basophils (%) (Auto) 0 0-10 % Neutrophils # (Auto) 5.6 1.8-7.8 X 10^3 Lymphocytes # (Auto) 2.9 1.0-4.0 X 10^3 Monocytes # (Auto) 0.8 0.0-1.0 X 10^3 Eosinophils # (Auto) 0.1 0.0-0.3 10^3/uL Basophils # (Auto) 0.0 0.0-0.1 10^3/uL D-Dimer 0.56 H 0.00-0.49 UG/ML Sodium Level 139 135-145 MMOL/L Potassium Level 3.7 3.6-5.0 MMOL/L Chloride Level 103 98-107 MMOL/L Carbon Dioxide Level 22 21-32 MMOL/L Anion Gap 14 5-14 MMOL/L Blood Urea Nitrogen 22 H 7-18 MG/DL Creatinine 0.83 0.60-1.30 MG/DL Estimat Glomerular Filtration Rate > 60 BUN/Creatinine Ratio 27 Glucose Level 174 H 70-105 MG/DL Calcium Level 9.3 8.5-10.1 MG/DL Corrected Calcium 9.2 8.5-10.1 MG/DL Total Bilirubin 0.2 0.1-1.0 MG/DL Aspartate Amino Transf (AST/SGOT) 24 5-34 U/L Alanine Aminotransferase (ALT/SGPT) 20 0-55 U/L Alkaline Phosphatase 64 40-136 U/L Troponin I < 0.30 <0.30 NG/ML C-Reactive Protein 0.20 <0.50 MG/DL Pro-B-Type Natriuretic Peptide < 5.0 <75.0 PG/ML Total Protein 6.6 6.4-8.2 GM/DL Albumin 4.1 3.2-4.5 GM/DL My Orders Orders - TRACY RAMÍREZ JR, MD Cbc With Automated Diff (01/22/20 04:15) Comprehensive Metabolic Panel (01/22/20 04:15) Fibrin Degradation Products (01/22/20 04:15) Probnp Fs (01/22/20 04:15) Chest 1 View Ap/Pa Only (01/22/20 04:15) Coronavirus Sars-Cov-2 So 2018 (01/22/20 04:15) Troponin I Fs (01/22/20 04:15) Ekg Tracing (01/22/20 04:15) Crp Fs (01/22/20 04:15) Ed Iv/Invasive Line Start (01/22/20 04:47) Vital Signs/I&O 01/22/20 04:14 Temp 36.8 Pulse 72 Resp 20 B/P (MAP) 103/76 (85) Pulse Ox 98 O2 Delivery Room Air Capillary Refill : Less Than 3 Seconds Blood Pressure Mean: 85 ECG Initial ECG Impression Date: Jan 22, 2020 Initial ECG Impression Time: 04:21 Initial ECG Rate: 72 Initial ECG Rhythm: Normal Sinus Initial ECG Intervals: Normal Initial ECG Impression: Normal Initial ECG Comparisson: No Previous ECG Available Departure Communication (Admissions) At this point lab work wouldn't indicate COVID although test is pending do feel like she continues to take her albuterol at home and follow depending on how she does if worsening shortness of breath and would be rechecked. Impression Primary Impression: Shortness of breath Disposition: 01 HOME, SELF-CARE Condition: Stable Departure-Patient Inst. Referrals: XOCHILT PLASCENCIA MD (PCP/Family) Primary Care Physician Patient Instructions: Shortness of Breath (Dyspnea) (DC) TRACY RAMÍREZ JR, MD Jan 22, 2020 04:44
[2020-01-22 05:32] VITALS: BP 133/69
--- NOTE | 2020-01-22 07:02 | Diagnostic Imaging Report ---
HISTORY: Shortness of breath COMPARISON: None TECHNIQUE: Frontal view of the chest. FINDINGS: Lung volumes are large. No focal consolidation is seen. There is no pleural effusion or pneumothorax. The cardiac silhouette is normal in size and contour. There are degenerative changes in the shoulders. IMPRESSION: 1. Mildly large lung volumes with no acute pulmonary abnormality seen. Dictated by: Dictated on workstation # [id number]
== END 2020-01-22 05:33 | disposition home or self-care (01) ==
LOC: EDUNIT# 04:00 → ER FS 04:03
DX: R06.02 Shortness of breath (principal); J45.909 Unspecified asthma, uncomplicated; M19.91 Primary osteoarthritis, unspecified site; E03.9 Hypothyroidism, unspecified
CPT/HCPCS: 36415; 71045; 80053; 83880; 84484; 85025; 85379; 86141; 93005; 99284; U0002; 87635

== ENCOUNTER → 2020-07-18 | Outpatient (CLI) | payer MEDICARE, OTHER ==
[2020-07-18 11:20] LABS: BUN/CREATININE RATIO 26; CARBON DIOXIDE 23 MMOL/L (21-32); CHLORIDE 105 MMOL/L (98-107); CREATININE SERUM 0.84 MG/DL (0.60-1.30); GFR ESTIMATED > 60; GLUCOSE 95 MG/DL (70-105); POTASSIUM 4.1 MMOL/L (3.6-5.0); SODIUM 141 MMOL/L (135-145)
[2020-07-18 11:21] LABS: ALANINE AMINOTRANSFERASE 32 U/L (0-55); ALBUMIN 4.6 GM/DL (3.2-4.5); ALKALINE PHOSPHATASE 72 U/L (40-136); BILIRUBIN,TOTAL 0.5 MG/DL (0.1-1.0); CALCIUM 9.5 MG/DL (8.5-10.1); TOTAL PROTEIN 7.2 GM/DL (6.4-8.2)
== END ==
LOC: LAB FS 08:48
PROVIDERS: ATTEND Family Medicine
DX: Z00.00 Encounter for general adult medical examination without abnormal findings (principal); E89.0 Postprocedural hypothyroidism
CPT/HCPCS: 36415; 80053; 80061; 84443

== ENCOUNTER → 2023-01-20 | Outpatient (CLI) | payer MEDICARE, OTHER ==
--- NOTE | 2023-01-20 17:14 | Diagnostic Imaging Report ---
INDICATION: Pelvic pain EXAMINATION: Pelvis 01/20/23 FINDINGS: Single view pelvis There are no fractures or dislocations. The joint spaces appear maintained. There are clips in the left lower pelvis with staple line in the right lower pelvis. IMPRESSION: 1. No acute osseous abnormality. Dictated by: Dictated on workstation # [id number]
== END ==
LOC: RAD FS 16:20
PROVIDERS: ATTEND Registered Nurse Emergency
DX: R10.2 Pelvic and perineal pain (principal)
CPT/HCPCS: 72170